=== PATIENT | female | born 1985 | race Caucasian/White ===

== ENCOUNTER 2021-06-02 11:32 | Outpatient (CLI) | payer OTHER ==
--- NOTE | 2021-06-02 15:17 | XRAY Report ---
PROCEDURE: Cervical Spine 2 View INDICATIONS: CERVICALAGIA TECHNIQUE: 2 view(s) of the cervical spine were acquired. COMPARISON: None. FINDINGS: Bones: No fractures or dislocations to the C7-T1. level. The lateral masses of C1 appear intact on the odontoid view. No suspicious bony lesions. Mild straightening of cervical curvature. Soft tissues: No prevertebral soft tissue swelling. IMPRESSION: Mild cervical straightening. Reviewed by: Melanie Mayen MD on 06/02/2021 3:16 PM [facility] Approved by: Melanie Mayen MD on 06/02/2021 3:16 PM [facility] Station ID: [id number]
--- NOTE | 2021-06-06 05:44 | XRAY Report ---
PROCEDURE: Chest 1 View X-Ray INDICATIONS: BRACHIAL PLEXUS DISORDERS TECHNIQUE: One view of the chest was acquired. COMPARISON: None FINDINGS: Surgical changes and devices: None. Lungs and pleura: No pleural effusions or pneumothorax. Lungs are clear. Mediastinum: Mediastinal contours appear normal. Heart size is normal. Bones and chest wall: No suspicious bony lesions. Overlying soft tissues appear unremarkable. IMPRESSION: No acute pulmonary process. Reviewed by: Melanie Mayen MD on 06/02/2021 3:15 PM PST Approved by: Melanie Mayen MD on 06/02/2021 3:15 PM [facility] Station ID: [id number]
== END 2021-06-02 11:33 | disposition home or self-care (01) ==
LOC: DI 11:32
PROVIDERS: ATTEND Registered Nurse
DX: M54.2 Cervicalgia (principal); G54.0 Brachial plexus disorders

== ENCOUNTER 2021-08-31 08:00 | Outpatient (CLI) | payer OTHER ==
[2021-08-31 22:15] LABS: BACTERIAL VAGINOSIS DNA NEGATIVE (NEGATIVE); CANDIDA GLABRATA DNA NEGATIVE (NEGATIVE); CANDIDA GROUP DNA NEGATIVE (NEGATIVE); CANDIDA KRUSEI DNA NEGATIVE (NEGATIVE); TRICHOMONAS VAGINALIS DNA NEGATIVE (NEGATIVE)
[2021-08-31 23:01] LABS: CHLAMYDIA TRACHOMATIS DNA NEGATIVE (NEGATIVE); NEISSERIA GONORRHOEAE DNA NEGATIVE (NEGATIVE)
== END 2021-08-31 23:59 | disposition home or self-care (01) ==
LOC: LAB.N 08:00
PROVIDERS: ATTEND Nurse Practitioner
DX: N89.8 Other specified noninflammatory disorders of vagina (principal)
CPT/HCPCS: 81514; 87086; 87491; 87591; 87661